=== PATIENT | male | born 1990 | race Caucasian/White ===

== ENCOUNTER 2019-01-27 13:20 | Emergency (ER) | payer MEDICAID ==
[~2019-01-27] VITALS: Ht 167.6 cm; Wt 68.0 kg
[2019-01-27 13:24] VITALS: BP 105/60
--- NOTE | 2019-01-27 13:32 | NUR ---
PT AMB TO BED 11.
--- NOTE | 2019-01-27 14:23 | NUR ---
C/O BLOOD TINGED COUGH TWICE X TODAY. PT ADDS THAT HIS THROAT HAS BEEN SORE "FOR A WHILE". LUNGS CLEAR BILATERALLY. RR EVEN AND UNLABORED. NO RESTRESS NOTED. AIRWAY INTACT. PT APPEARS TO HAVE A RUNNY NOSE. PT VS STABLE, PT ALERT AND AWAKE. AMBULATES WITH STEADY GAIT. BED IS DOWN, LOCKED, BED RAIL X 1. MED HX:DENIES
--- NOTE | 2019-01-27 14:23 | NUR ---
DR MURPHY AT BEDSIDE
--- NOTE | 2019-01-27 14:43 | NUR ---
PER DR MURPHY, URINE DOES NOT NEED TO BE COLLECTED
[2019-01-27 14:55] VITALS: BP 105/60
--- NOTE | 2019-01-27 14:56 | NUR ---
Patient discharged with v/s stable. Written and verbal after care instructions given and explained. Patient alert, oriented and verbalized understanding of instructions. Ambulatory with steady gait. All questions addressed prior to discharge. ID band removed. Patient advised to follow up with PMD. Rx of AZITHRMYCIN, PREDNISONE, PROMETHAZINE given. Patient educated on indication of medication including possible reaction and side effects. Opportunity to ask questions provided and answered.
== END 2019-01-27 14:56 | disposition home or self-care (01) ==
LOC: MED 13:20
DX: J01.90 Acute sinusitis, unspecified (principal)
CPT/HCPCS: 99283